=== PATIENT | female | born 1980 | race African-American/Black ===

== ENCOUNTER 2017-07-14 04:09 | Emergency (ER) | payer OTHER ==
[2017-07-14 04:20] VITALS: BP 127/68
== END 2017-07-14 05:40 | disposition left against medical advice (07) ==
LOC: ER 04:09
DX: Z53.21 Procedure and treatment not carried out due to patient leaving prior to being seen by health care provider (principal)

== ENCOUNTER 2018-06-22 19:21 | Emergency (ER) | payer OTHER ==
[2018-06-22 19:47] LABS: APPEARANCE,URINE CLEAR; BILIRUBIN,URINE NEGATIVE (NEGATIVE); COLOR,URINE YELLOW; GLUCOSE, URINE NEGATIVE (NEGATIVE); KETONES,URINE NEGATIVE (NEGATIVE); LEUKOCYTE ESTERASE,URINE SMALL (NEGATIVE); NITRITE,URINE NEGATIVE (NEGATIVE); PROTEIN,URINE NEGATIVE (NEGATIVE); URINE SPECIFIC GRAVITY 1.015
[2018-06-22 20:21] VITALS: BP 138/71
--- NOTE | 2018-06-22 20:23 | ER Document Report ---
HPI - HPI Time Seen by Provider: 06/22/18 20:22 Pain Level: 3 Notes: Patient is an otherwise healthy 37-year-old female who presents to the emergency department with chief complaint of dysuria and urinary frequency that started last night. Patient reports burning when she pees. Denies any flank pain or fever. - REPRODUCTIVE Reproductive: DENIES: : Past Medical History - General Information source: Patient - Social History Smoking Status: Current Every Day Smoker Frequency of alcohol use: None Drug Abuse: None Family History: Reviewed & Not Pertinent Neurological Medical History: Reports: Hx Migraine Renal/ Medical History: Denies: Hx Peritoneal Dialysis Past Surgical History: Reports: Hx Section - Immunizations Immunizations up to date: Yes Hx Diphtheria, Pertussis, Tetanus Vaccination: Yes Hx Pneumococcal Vaccination: 06/01/00 Vertical Provider Document - CONSTITUTIONAL Notes: PHYSICAL EXAMINATION: GENERAL: Well-appearing, well-nourished and in no acute distress. HEAD: Atraumatic, normocephalic. EYES: Pupils equal round extraocular movements intact, conjunctiva are normal. ENT: Nares patent NECK: Normal range of motion LUNGS: No respiratory distress Musculoskeletal: Normal range of motion NEUROLOGICAL: Normal speech, normal gait. PSYCH: Normal mood, normal affect. SKIN: Warm, Dry, normal turgor, no rashes or lesions noted. - INFECTION CONTROL TRAVEL OUTSIDE OF THE [place] IN LAST 30 DAYS: No Course - Re-evaluation Re-evalutation: 06/22/18 20:35 Urinalysis consistent with urinary tract infection. Patient will be placed on Bactrim. Culture pending. - Vital Signs Vital signs: Temp Pulse Resp BP Pulse Ox 98.2 F 86 16 138/71 H 100 06/22/18 19:25 06/22/18 19:25 06/22/18 19:25 06/22/18 19:25 06/22/18 19:25 - Laboratory Laboratory results interpreted by me: 06/22/18 19:30 Urine Blood MODERATE H Urine Urobilinogen 2.0 H Ur Leukocyte Esterase SMALL H Discharge - Discharge Clinical Impression: Urinary tract infection Qualifiers: Urinary tract infection type: site unspecified Hematuria presence: with hematu gil Qualified Code(s): N39.0 - Urinary tract infection, site not specified Condition: Stable Disposition: HOME, SELF-CARE Additional Instructions: Your urine shows findings consistent with a urinary tract infection. Please take all the antibiotics as directed even if your symptoms have improved. Please follow-up with your primary care physician as needed. Return to emergency room if you develop fever >101F, persistent vomiting, become lethargic, have severe pain in your sides, or any other symptoms that are concerning to you. Prescriptions: Fluconazole [Diflucan] 150 mg PO ONCE PRN #1 tablet PRN Reason: Phenazopyridine HCl [Pyridium 100 Mg Tablet] 100 mg PO TID #6 tablet Sulfamethoxazole/Trimethoprim [Bactrim Ds Tablet] 1 tab PO BID #14 tablet Forms: Return to Work
[2018-06-22] MEDS ORDERED: PHENAZOPYRIDINE HCL 100 MG TABLET PO ONE (20:31)
[2018-06-22] MEDS ORDERED: SULFAMETHOXAZOLE/TRIMETHOPRIM 800-160 MG TABLET PO ONE (20:32)
== END 2018-06-22 20:43 | disposition home or self-care (01) ==
LOC: ER 19:21
DX: N39.0 Urinary tract infection, site not specified (principal); R31.9 Hematuria, unspecified; F17.200 Nicotine dependence, unspecified, uncomplicated
CPT/HCPCS: 99283; 87086; 87088; 81001; 87186; J3490

== ENCOUNTER 2019-04-26 01:34 | Inpatient (IN) | payer OTHER ==
[2019-04-26 02:16] LABS: HEMATOCRIT 34.1 % (36.0-47.0); HEMOGLOBIN 11.3 g/dL (12.0-15.5); MEAN CORPUSCULAR HEMOGLOBIN 24.6 pg (27.0-33.4); MEAN CORPUSCULAR VOLUME 75 fl (80-97); PLATELET COUNT 268 10^3/uL (150-450); RED BLOOD COUNT 4.57 10^6/uL (3.72-5.28); RED CELL DISTRIBUTION WIDTH 16.5 % (11.5-14.0); WHITE BLOOD COUNT 18.7 10^3/uL (4.0-10.5)
[2019-04-26 02:31] LABS: ALBUMIN 4.8 g/dL (3.5-5.0); ALKALINE PHOSPHATASE 65 U/L (38-126); ANION GAP 13 (5-19); ASPARTATE AMINO TRANSFERASE 25 U/L (14-36); BILIRUBIN,DIRECT 0.1 mg/dL (0.0-0.4); BLOOD UREA NITROGEN 10 mg/dL (7-20); CALCIUM 10.2 mg/dL (8.4-10.2); CARBON DIOXIDE 28 mmol/L (22-30); CHLORIDE 101 mmol/L (98-107); GLUCOSE 126 mg/dL (75-110); POTASSIUM 3.4 mmol/L (3.6-5.0); TOTAL PROTEIN 8.3 g/dL (6.3-8.2)
[2019-04-26 02:32] LABS: ABSOLUTE LYMPHOCYTES# (MANUAL) 0.7 10^3/uL (0.5-4.7); ABSOLUTE MONOCYTES # (MANUAL) 0.9 10^3/uL (0.1-1.4); ANISOCYTOSIS 1+; BAND NEUTROPHILS % (MANUAL) 8 % (3-5); BASOPHILS % (MANUAL) 0 % (0-2); EOSINOPHILS % (MANUAL) 0 % (0-6); LYMPHOCYTES % (MANUAL) 3 % (13-45); MONOCYTES % (MANUAL) 5 % (3-13); PLATELET COMMENT ADEQUATE; SEGMENTED NEUTROPHILS % (MAN) 83 % (42-78); TARGET CELLS SLIGHT; TOTAL CELLS COUNTED 100
[2019-04-26] MEDS ORDERED: CEFTRIAXONE 1 GM/D5W RTU 1 GM/50 ML RTUPB IV ONE (03:30)
[2019-04-26] MEDS ORDERED: FENTANYL CITRATE INJ/PF 100 MCG/2 ML AMPUL IV ONE (03:31)
[2019-04-26] MEDS ORDERED: ONDANSETRON HCL INJ/PF 4 MG/2 ML SDV IV ONE ×2 (03:31→07:47)
[2019-04-26] MEDS ORDERED: NORMAL SALINE 1000 ML 1,000 ML IV ONE (03:31)
[2019-04-26] MEDS ORDERED: MORPHINE SULFATE 10 MG/ML INJ IV ONE ×3 (03:34→07:47)
[2019-04-26 05:24] LABS: T.VAGINALIS (WET MOUNT) NO TRICHOMONAS SEEN; YEAST (WET MOUNT) YEAST SEEN
[2019-04-26 05:25] LABS: BACTERIA (WET MOUNT) 4+ BACTERIA SEEN; RBCS (WET MOUNT) 1+ RBCS SEEN; WBCS (WET MOUNT) FEW WBCS SEEN
[2019-04-26 05:34] LABS: APPEARANCE,URINE SLIGHTLY-CLOUDY; BILIRUBIN,URINE NEGATIVE (NEGATIVE); COLOR,URINE YELLOW; GLUCOSE, URINE NEGATIVE (NEGATIVE); KETONES,URINE TRACE mg/dL (NEGATIVE); LEUKOCYTE ESTERASE,URINE MODERATE (NEGATIVE); NITRITE,URINE NEGATIVE (NEGATIVE); PROTEIN,URINE 30 mg/dL (NEGATIVE); URINE SPECIFIC GRAVITY 1.014
[2019-04-26] MEDS ORDERED: ACETAMINOPHEN 325 MG TABLET PO ONE (06:12)
[2019-04-26] MEDS ORDERED: FLUCONAZOLE 100 MG TABLET PO ONE (06:12)
[2019-04-26] MEDS ORDERED: NORMAL SALINE 500 ML IV ONE (06:15)
--- NOTE | 2019-04-26 06:18 | ER Document Report ---
ED GI/ - General Chief Complaint: Abdominal Pain Stated Complaint: ABDOMINAL PAIN Time Seen by Provider: 04/26/19 03:09 Notes: Patient is a 38 year old female that comes to the Emergency Department for chief complaint of 2-3 days of worsening mid to lower abdominal pain, and now she states she has developed generalized body aches and chills. She comes by EMS, she was found to have a fever of 100.8 initially. Patient denies vomiting but reports some nausea. She states that she believes she has gonorrhea, she states that she "loaned" her sexual toy/dildo and told the friend to use a cover, she suspects they did not, and she believes she got an STD from it. She reports past medical history of , denies medical history otherwise. TRAVEL OUTSIDE OF THE [place] IN LAST 30 DAYS: No - Related Data Allergies/Adverse Reactions: tramadol [Tramadol] Allergy (Intermediate, Verified 04/26/19 01:43) tramadol HCl [From Ultram] Allergy (Intermediate, Verified 04/26/19 01:43) hurts stomach, nausea, vomiting Penicillins Allergy (Unknown, Verified 04/26/19 01:43) heart speeds up hydrocodone bitartrate [From Vicodin] Allergy (Verified 04/26/19 01:43) heart speeds up, feels faint ketorolac tromethamine [From Toradol] Allergy (Verified 04/26/19 01:43) hydrocodone [Hydrocodone] Adverse Reaction (Intermediate, Verified 04/26/19 01:43) heart speed up, feel faint ibuprofen [From Motrin] Adverse Reaction (Intermediate, Verified 04/26/19 01:43) hurts stomach, nausea, vomiting Past Medical History - General Information source: Patient - Social History Smoking Status: Current Every Day Smoker Frequency of alcohol use: Occasional Drug Abuse: None Lives with: Alone Family History: Reviewed & Not Pertinent Patient has suicidal ideation: No Patient has homicidal ideation: No Neurological Medical History: Reports: Hx Migraine Renal/ Medical History: Denies: Hx Peritoneal Dialysis Past Surgical History: Reports: Hx Section - Immunizations Immunizations up to date: Yes Hx Diphtheria, Pertussis, Tetanus Vaccination: Yes Hx Pneumococcal Vaccination: 06/01/00 Review of Systems - Review of Systems Constitutional: See HPI EENT: No symptoms reported Cardiovascular: No symptoms reported Respiratory: No symptoms reported Gastrointestinal: See HPI Genitourinary: No symptoms reported Female Genitourinary: See HPI Musculoskeletal: No symptoms reported Skin: No symptoms reported Hematologic/Lymphatic: No symptoms reported Neurological/Psychological: No symptoms reported Physical Exam - Vital signs Vitals: Temp Pulse Resp BP Pulse Ox 98.6 F 85 18 116/46 L 97 04/26/19 01:49 04/26/19 01:49 04/26/19 01:49 04/26/19 01:49 04/26/19 01:49 - Notes Notes: GENERAL: Thin and somewhat ill-appearing, however she is alert and is not in severe distress HEAD: Normocephalic, atraumatic. EYES: Pupils equal, round, and reactive to light. Extraocular movements intact. ENT: Oral mucosa moist, tongue midline. Oropharynx unremarkable. Airway patent. NECK: Full range of motion. Supple. Trachea midline. LUNGS: Clear to auscultation bilaterally, no wheezes, rales, or rhonchi. No respiratory distress. HEART: Regular rate and rhythm. No murmur ABDOMEN: Patient is tender regardless of where he pressed on the abdomen but this seems more noticeable generally in the lower abdomen. There is no specific area of guarding, no rigidity, no rebound tenderness. GENITOURINARY: There is a moderate amount of vaginal bleeding, there is also a moderate amount of vaginal discharge, there is tenderness but not severe noted tenderness, exam is somewhat limited by patient cooperation. Mago THAYER present at bedside. EXTREMITIES: Moves all 4 extremities spontaneously. No edema, normal radial and dorsalis pedis pulses bilaterally. No cyanosis. BACK: No noted CVA tenderness. No cervical, thoracic, lumbar midline tenderness. No saddle anesthesia, normal distal neurovascular exam. NEUROLOGICAL: Alert and oriented x3. Normal speech. Cranial nerves II through XII grossly intact. PSYCH: Irritable and intermittently demanding and uncooperative SKIN: Warm, dry, normal turgor. No rashes or lesions noted. Course - Re-evaluation Re-evalutation: Patient with very tender abdomen, moves with obvious discomfort, no overt CVA tenderness, ill-appearing. Vital signs unremarkable except initial fever at 100.8. CBC shows leukocytosis at 19.8 with bandemia of 8%. Lactic acid is not elevated. Chemistry nonspecific. Urinalysis does indicate infection. Pelvic exam showed some bleeding and some discharge with tenderness but no definite CM T, patient did have difficulty tolerating the procedure and I could not get a definite result with this. Wet mount shows positive yeast, positive white blood cells and bacteria, giving Diflucan. Temperature is starting to come back at 100.3. Patient still ill-appearing and tender on reexamination, gonorrhea and chlamydia pending, starting Rocephin, CT will be performed to rule out obstructing stone or abscess. CT negative for acute pathology. Gonorrhea is positive. Patient has been given Rocephin and doxycycline so far, blood cultures pending. Patient is still very tender despite pain medication, moves with a lot of discomfort. Because of her fever, leukocytosis with bandemia, I suspect patient has severe PID at this time. Will discuss with MUSIC THERAPY SPECIALIST. 04/26/19 08:[address] Hunter, patient will be excepted by Dr. Goldman, they recommended patient be brought up to and she will be examined there. I did discuss with patient, patient states agreement with plan of admission. - Vital Signs Vital signs: Temp Pulse Resp BP Pulse Ox 100.3 F 81 16 124/68 96 04/26/19 05:53 04/26/19 05:53 04/26/19 05:53 04/26/19 05:53 04/26/19 05:53 - Laboratory Result Diagrams: 04/26/19 02:00 04/26/19 02:00 Laboratory results interpreted by me: 04/26/19 04/26/19 04/26/19 02:00 02:00 04:45 WBC 18.7 H Hgb 11.3 L Hct 34.1 L MCV 75 L MCH 24.6 L RDW 16.5 H Seg Neuts % (Manual) 83 H Band Neutrophils % 8 H Lymphocytes % (Manual) 3 L Abs Neuts (Manual) 17.0 H Potassium 3.4 L Glucose 126 H Total Protein 8.3 H Lipase 19.5 L Urine Protein Urine Ketones Urine Blood Urine Urobilinogen Ur Leukocyte Esterase N.gonorrhoeae DNA (PCR) DETECTED H 04/26/19 04:58 WBC Hgb Hct MCV MCH RDW Seg Neuts % (Manual) Band Neutrophils % Lymphocytes % (Manual) Abs Neuts (Manual) Potassium Glucose Total Protein Lipase Urine Protein 30 H Urine Ketones TRACE H Urine Blood LARGE H Urine Urobilinogen 4.0 H Ur Leukocyte Esterase MODERATE H N.gonorrhoeae DNA (PCR) Discharge - Discharge Clinical Impression: Bandemia, PID (acute pelvic inflammatory disease), Gonorrhea, Lower abdominal pain Fever Qualifiers: Fever type: unspecified Qualified Code(s): R50.9 - Fever, unspecified Condition: Stable Disposition: ADMITTED INPATIENT Admitting Provider: [facility] Unit Admitted: Post
[2019-04-26 06:54] LABS: CHLAM PCR NOT DETECTED (NOT DETECT)
[2019-04-26] MEDS ORDERED: DOXYCYCLINE HYCLATE INJ 100 MG VIAL IV ONE (07:09)
--- NOTE | 2019-04-26 07:22 | RADIOLOGY REPORT (SQ) ---
EXAM: CT abdomen and pelvis with IV contrast CLINICAL DATA: 38-year-old female with questionable tubo-ovarian abscess, fever, STD exposure, bandemia, lower abdominal pain TECHNICAL DATA: Axial CT imaging of the abdomen and pelvis was performed following the administration of intravenous contrast.. Sagittal and coronal reconstructed images were then performed. The CT study is performed according to ALARA (as low as reasonably achievable) or ALARA/IMAGE GENTLY, with automatic adjustment of mA and/or kV according to patient size. Performed on: 04/26/2019 at 6:18 AM. Comparison: CT abdomen and pelvis performed on 09/27/2014 FINDINGS: Lung bases: The lung bases are clear. Liver: The liver is mildly enlarged and measures approximately 19 cm in craniocaudal dimension. There is a 2.7 x 2.1 x 2.2 cm focal area of decreased attenuation in the right hepatic lobe which mildly enhances on the portal phase images. This is nonspecific and could represent a hemangioma. Liver attenuation is otherwise grossly within normal limits. Spleen:The spleen is normal is size, configuration and attenuation. Gallbladder and bile duct: The gallbladder is well distended and is grossly unremarkable. The common bile duct is mildly dilated and measures approximately 8 to 9 mm in diameter. There is tapering of the distal common bile duct. Pancreas: The pancreas is grossly normal in size and configuration. Adrenal Glands:The adrenal glands are normal in size and configuration. Kidneys:The kidneys are normal in size and configuration. There is no evidence of hydronephrosis. There is no evidence of nephrolithiasis. No definite solid or cystic renal mass lesions are identified. Stomach:The stomach is grossly normal. There is no definite hiatal hernia. Bowel:The bowel gas pattern is non specific and non obstructive. Appendix: The appendix is normal. Free air:There is no evidence of free air. Free fluid: There is no evidence of free fluid. Vasculature: The aorta is normal in caliber and contour. The inferior vena cava is grossly unremarkable. Lymphadenopathy: No pathologic lymphadenopathy is identified. Bladder: The bladder is well distended and smooth in contour. Reproductive: The uterus is grossly within normal limits. No adnexal mass lesions are identified. Bones: No acute osseous abnormalities are identified. Soft tissues: No focal soft tissue abnormalities are identified. IMPRESSION: 1. No evidence of acute intra-abdominal or intrapelvic pathology. 2. The gallbladder is moderately distended and there is dilatation of the common bile duct which measures approximately 8 to 9 mm in diameter with tapering of the distal common duct. 3. Mild hepatomegaly. 4. Approximately 2.7 x 2.1 x 2.2 cm focal area of decreased attenuation in the right hepatic lobe which mildly enhances on the portal phase images possibly representing a cavernous hemangioma.
[2019-04-26] MEDS ORDERED: METRONIDAZOLE 500 MG/NS RTU 500 MG in CONTAINER,EMPTY 1 EACH IV SCH (10:41)
[2019-04-26] MEDS ORDERED: AZITHROMYCIN INJ 500 MG VIAL IV ONE (10:41)
[2019-04-26] MEDS ORDERED: METRONIDAZOLE 500 MG/NS RTU 500 MG/100 ML RTUPB IV ONE (10:49)
--- NOTE | 2019-04-26 10:59 | PDOC H&P ---
History of Present Illness Admission Date/PCP: 04/26/19 08:52 Patient complains of: Worsening abdominal pain over 2 to 3 days History of Present Illness: ALEX FIELD is a 38 year old presented to [facility] emergency department complaining of worsening abdominal pain. Patient stated that the abdominal pain started 2 to 3 days ago. She does have some nausea but no vomiting. Patient stated that she thought that she had Gonorrhea secondary to landing her sex toy to her friend. When the EMS arrived, her temperature was 100.8. She was indeed positive for Gonorrhea. Past Medical History 1 Baby 1 Male Delivery: Spontaneous Vaginal Delivery, : Low Cervical, Transverse Neurological Medical History: Reports: Migraine Past Surgical History Past Surgical History: Reports: Section Social History Lives with: Alone Smoking Status: Current Every Day Smoker Electronic Cigarette use?: No Frequency of Alcohol Use: Rare Hx Recreational Drug Use: No Family History Family History: Reviewed & Not Pertinent Parental Family History Reviewed: Yes Children Family History Reviewed: NA Sibling(s) Family History Reviewed.: NA Medication/Allergy Home Medications: Fremanezumab-Vfrm [Ajovy] 225 mg SQ Q30D 04/26/19 Allergies/Adverse Reactions: tramadol [Tramadol] Allergy (Intermediate, Verified 04/26/19 01:43) tramadol HCl [From Ultram] Allergy (Intermediate, Verified 04/26/19 01:43) hurts stomach, nausea, vomiting Penicillins Allergy (Unknown, Verified 04/26/19 01:43) heart speeds up hydrocodone bitartrate [From Vicodin] Allergy (Verified 04/26/19 01:43) heart speeds up, feels faint ketorolac tromethamine [From Toradol] Allergy (Verified 04/26/19 01:43) hydrocodone [Hydrocodone] Adverse Reaction (Intermediate, Verified 04/26/19 01:43) heart speed up, feel faint ibuprofen [From Motrin] Adverse Reaction (Intermediate, Verified 04/26/19 01:43) hurts stomach, nausea, vomiting Review of Systems Constitutional: PRESENT: as per HPI Cardiovascular: ABSENT: as per HPI, chest pain, dyspnea on exertion, edema, orthropnea, palpitations, other Respiratory: ABSENT: as per HPI, cough, dyspnea, hemoptysis, sputum, other Gastrointestinal: PRESENT: abdominal pain Physical Exam - Physical Exam Vital Signs: Temp Pulse Resp BP Pulse Ox 99.2 F 97 18 121/68 97 04/26/19 09:56 04/26/19 09:56 04/26/19 09:56 04/26/19 09:56 04/26/19 09:56 Intake & Output 04/25/19 04/26/19 04/27/19 06:59 06:59 06:59 Intake Total 1050 500 Balance 1050 500 Weight 54.431 kg General appearance: PRESENT: no acute distress Respiratory exam: PRESENT: clear to auscultation gricelda Cardiovascular exam: PRESENT: RRR GI/Abdominal exam: PRESENT: normal bowel sounds, soft - Mild tenderness Extremities exam: ABSENT: calf tenderness, clubbing, full ROM, joint swelling, pedal edema, tenderness, +1 edema, +2 edema, other Result Laboratory Results: 04/26/19 02:00 04/26/19 02:00 04/26/19 04/26/19 04/26/19 02:00 02:00 02:00 WBC 18.7 H RBC 4.57 Hgb 11.3 L Hct 34.1 L MCV 75 L MCH 24.6 L MCHC 33.0 RDW 16.5 H Plt Count 268 Seg Neutrophils % Not Reportable Sodium 142.3 Potassium 3.4 L Chloride 101 Carbon Dioxide 28 Anion Gap 13 BUN 10 Creatinine 0.69 Est GFR ( Amer) > 60 Glucose 126 H Calcium 10.2 Total Bilirubin 1.0 AST 25 Alkaline Phosphatase 65 Total Protein 8.3 H Albumin 4.8 Lipase 19.5 L Serum HCG, Qual NEGATIVE Urine Color Urine Appearance Urine pH Ur Specific [place] Urine Protein Urine Glucose (UA) Urine Ketones Urine Blood Urine Nitrite Ur Leukocyte Esterase Urine WBC (Auto) Urine RBC (Auto) 04/26/19 04:58 WBC RBC Hgb Hct MCV MCH MCHC RDW Plt Count Seg Neutrophils % Sodium Potassium Chloride Carbon Dioxide Anion Gap BUN Creatinine Est GFR ( Amer) Glucose Calcium Total Bilirubin AST Alkaline Phosphatase Total Protein Albumin Lipase Serum HCG, Qual Urine Color YELLOW Urine Appearance SLIGHTLY-CLOUDY Urine pH 6.0 Ur Specific [place] 1.014 Urine Protein 30 H Urine Glucose (UA) NEGATIVE Urine Ketones TRACE H Urine Blood LARGE H Urine Nitrite NEGATIVE Ur Leukocyte Esterase MODERATE H Urine WBC (Auto) 130 Urine RBC (Auto) >182 Impressions: Abdomen/Pelvis CT 04/26/19 05:43 IMPRESSION: 1. No evidence of acute intra-abdominal or intrapelvic pathology. 2. The gallbladder is moderately distended and there is dilatation of the common bile duct which measures approximately 8 to 9 mm in diameter with tapering of the distal common duct. 3. Mild hepatomegaly. 4. Approximately 2.7 x 2.1 x 2.2 cm focal area of decreased attenuation in the right hepatic lobe which mildly enhances on the portal phase images possibly representing a cavernous hemangioma. Assessment & Plan - Diagnosis (1) Bandemia Is this a current diagnosis for this admission?: Yes (2) Fever Qualifiers: Fever type: unspecified Qualified Code(s): R50.9 - Fever, unspecified Is this a current diagnosis for this admission?: Yes (3) Gonorrhea Is this a current diagnosis for this admission?: Yes (4) Lower abdominal pain Is this a current diagnosis for this admission?: Yes (5) PID (acute pelvic inflammatory disease) Is this a current diagnosis for this admission?: Yes (6) Nausea Is this a current diagnosis for this admission?: Yes - Time Time Spent: 30 to 50 Minutes Critical Time spent with patient: 25-34 minutes Smoking Cessation Education: 3 to 10 minutes Medications reviewed and adjusted accordingly: Yes Anticipated discharge: Home Within: Other - pt will leave Against Medical Advice - Inpatient Certification Based on my medical assessment, after consideration of the patient's comorbidities, presenting symptoms, or acuity I expect that the services needed warrant INPATIENT care.: Yes I certify that my determination is in accordance with my understanding of Medicare's requirements for reasonable and necessary INPATIENT services [42 CFR 412.3e].: Yes Medical Necessity: Need for IV Antibiotics - Plan Summary Plan Summary: 1. Patient agreeable to receiving one IV dose of antibiotics 2. Patient is adamant about leaving to take her disabled son to a doctor's appointment 3. Prescriptions for Flagyl 500 mg twice daily x14 days and metronidazole 500 mg twice daily for 14 days 4. Follow-up in the office in 2 weeks
--- NOTE | 2019-04-26 11:13 | PDOC DISCHARGE SUMMARY ---
Impression - Admit/DC Date/PCP Admission Date/Primary Care Provider: 04/26/19 08:52 Discharge Date: 04/26/19 - Discharge Diagnosis (1) Bandemia Is this a current diagnosis for this admission?: Yes (2) Fever Is this a current diagnosis for this admission?: Yes (3) Gonorrhea Is this a current diagnosis for this admission?: Yes (4) Lower abdominal pain Is this a current diagnosis for this admission?: Yes (5) PID (acute pelvic inflammatory disease) Is this a current diagnosis for this admission?: Yes (6) Nausea Is this a current diagnosis for this admission?: Yes - Additional Information Resuscitation Status: Full Code Discharge Diet: As Tolerated Discharge Activity: Activity As Tolerated, Pelvic Rest Home Medications: Fremanezumab-Vfrm [Ajovy] 225 mg SQ Q30D 04/26/19 History of Present Illiness History of Present Illness: ALEX FIELD is a 38 year old presented to [facility] emergency department complaining of worsening abdominal pain. Patient stated that the abdominal pain started 2 to 3 days ago. She does have some nausea but no vomiting. Patient stated that she thought that she had Gonorrhea secondary to landing her sex toy to her friend. When the EMS arrived, her temperature was 100.8. She was indeed positive for Gonorrhea. Hospital Course Hospital Course: The patient was admitted to the floor after her emergency department admission. Patient immediately stated that she needed to leave. She stated that she has a handicapped son and needs to pick him up and take him to a doctor's appointment. Today, we discussed her pelvic inflammatory disease. I informed her that she now has gonorrhea which has traveled up into the genitourinary system, which is indicative of her fever and abdominal pain. I also informed her that if she does not receive proper antibiotic treatment, she can become infertile. I informed her that if she leaves, it will be AGAINST MEDICAL ADVICE. Patient is willing to sign an AMA form. She is agreeable to receiving at least 1 dose of azithromycin and metronidazole. She states that she will take her antibiotics orally and requested an additional prescription for Diflucan. Physical Exam - Physical Exam Vital Signs: Temp Pulse Resp BP Pulse Ox 99.2 F 97 18 121/68 97 04/26/19 09:56 04/26/19 09:56 04/26/19 09:56 04/26/19 09:56 04/26/19 09:56 Intake & Output 04/25/19 04/26/19 04/27/19 06:59 06:59 06:59 Intake Total 1050 500 Balance 1050 500 Weight 54.431 kg General appearance: PRESENT: no acute distress Respiratory exam: PRESENT: clear to auscultation gricelda Cardiovascular exam: PRESENT: RRR GI/Abdominal exam: PRESENT: normal bowel sounds, soft - Mild tenderness Extremities exam: ABSENT: calf tenderness, clubbing, full ROM, joint swelling, pedal edema, tenderness, +1 edema, +2 edema, other Results Laboratory Results: WBC 18.7 10^3/uL (4.0-10.5) H 04/26/19 02:00 RBC 4.57 10^6/uL (3.72-5.28) 04/26/19 02:00 Hgb 11.3 g/dL (12.0-15.5) L 04/26/19 02:00 Hct 34.1 % (36.0-47.0) L 04/26/19 02:00 MCV 75 fl (80-97) L 04/26/19 02:00 MCH 24.6 pg (27.0-33.4) L 04/26/19 02:00 MCHC 33.0 g/dL (32.0-36.0) 04/26/19 02:00 RDW 16.5 % (11.5-14.0) H 04/26/19 02:00 Plt Count 268 10^3/uL (150-450) 04/26/19 02:00 Lymph % (Auto) Not Reportable 04/26/19 02:00 [place] % (Auto) Not Reportable 04/26/19 02:00 Eos % (Auto) Not Reportable 04/26/19 02:00 Baso % (Auto) Not Reportable 04/26/19 02:00 Absolute Neuts (auto) Not Reportable 04/26/19 02:00 Absolute Lymphs (auto) Not Reportable 04/26/19 02:00 Absolute Monos (auto) Not Reportable 04/26/19 02:00 Absolute Eos (auto) Not Reportable 04/26/19 02:00 Absolute Basos (auto) Not Reportable 04/26/19 02:00 Total Counted 100 04/26/19 02:00 Seg Neutrophils % Not Reportable 04/26/19 02:00 Seg Neuts % (Manual) 83 % (42-78) H 04/26/19 02:00 Band Neutrophils % 8 % (3-5) H 04/26/19 02:00 Lymphocytes % (Manual) 3 % (13-45) L 04/26/19 02:00 Atypical Lymphs % 1 % (0) 04/26/19 02:00 Monocytes % (Manual) 5 % (3-13) 04/26/19 02:00 Eosinophils % (Manual) 0 % (0-6) 04/26/19 02:00 Basophils % (Manual) 0 % (0-2) 04/26/19 02:00 Abs Neuts (Manual) 17.0 10^3/uL (1.7-8.2) H 04/26/19 02:00 Abs Lymphs (Manual) 0.7 10^3/uL (0.5-4.7) 04/26/19 02:00 Abs Monocytes (Manual) 0.9 10^3/uL (0.1-1.4) 04/26/19 02:00 Absolute Eos (Manual) 0.0 10^3/uL (0.0-0.6) 04/26/19 02:00 Abs Basophils (Manual) 0.0 10^3/uL (0.0-0.2) 04/26/19 02:00 Platelet Comment ADEQUATE 04/26/19 02:00 Anisocytosis 1+ 04/26/19 02:00 Microcytosis 1+ 04/26/19 02:00 Target Cells SLIGHT 04/26/19 02:00 Sodium 142.3 mmol/L (137-145) 04/26/19 02:00 Potassium 3.4 mmol/L (3.6-5.0) L 04/26/19 02:00 Chloride 101 mmol/L (98-107) 04/26/19 02:00 Carbon Dioxide 28 mmol/L (22-30) 04/26/19 02:00 Anion Gap 13 (5-19) 04/26/19 02:00 BUN 10 mg/dL (7-20) 04/26/19 02:00 Creatinine 0.69 mg/dL (0.52-1.25) 04/26/19 02:00 Est GFR ( Amer) > 60 (>60) 04/26/19 02:00 Est GFR (MDRD) Non-Af > 60 (>60) 04/26/19 02:00 Glucose 126 mg/dL (75-110) H 04/26/19 02:00 Lactic Acid (Sepsis) 1.6 mmol/L (0.7-2.1) 04/26/19 04:05 Calcium 10.2 mg/dL (8.4-10.2) 04/26/19 02:00 Total Bilirubin 1.0 mg/dL (0.2-1.3) 04/26/19 02:00 Direct Bilirubin 0.1 mg/dL (0.0-0.4) 04/26/19 02:00 Neonat Total Bilirubin Not Reportable 04/26/19 02:00 Neonat Direct Bilirubin Not Reportable 04/26/19 02:00 Neonat Indirect Bili Not Reportable 04/26/19 02:00 AST 25 U/L (14-36) 04/26/19 02:00 ALT 14 U/L (<35) 04/26/19 02:00 Alkaline Phosphatase 65 U/L (38-126) 04/26/19 02:00 Total Protein 8.3 g/dL (6.3-8.2) H 04/26/19 02:00 Albumin 4.8 g/dL (3.5-5.0) 04/26/19 02:00 Lipase 19.5 U/L (23-300) L 04/26/19 02:00 Serum HCG, Qual NEGATIVE (NEGATIVE) 04/26/19 02:00 Urine Color YELLOW 04/26/19 04:58 Urine Appearance SLIGHTLY-CLOUDY 04/26/19 04:58 Urine pH 6.0 (5.0-9.0) 04/26/19 04:58 Ur Specific [place] 1.014 04/26/19 04:58 Urine Protein 30 mg/dL (NEGATIVE) H 04/26/19 04:58 Urine Glucose (UA) NEGATIVE mg/dL (NEGATIVE) 04/26/19 04:58 Urine Ketones TRACE mg/dL (NEGATIVE) H 04/26/19 04:58 Urine Blood LARGE (NEGATIVE) H 04/26/19 04:58 Urine Nitrite NEGATIVE (NEGATIVE) 04/26/19 04:58 Urine Bilirubin NEGATIVE (NEGATIVE) 04/26/19 04:58 Urine Urobilinogen 4.0 mg/dL (<2.0) H 04/26/19 04:58 Ur Leukocyte Esterase MODERATE (NEGATIVE) H 04/26/19 04:58 Urine WBC (Auto) 130 /HPF 04/26/19 04:58 Urine RBC (Auto) >182 /HPF 04/26/19 04:58 Squamous Epi Cells Auto 1 /HPF 04/26/19 04:58 Urine Mucus (Auto) OCC /LPF 04/26/19 04:58 Urine Ascorbic Acid NEGATIVE (NEGATIVE) 04/26/19 04:58 Bacteria (Wet Prep) 4+ BACTERIA SEEN 04/26/19 04:45 Trichomonas (Wet Prep) NO TRICHOMONAS SEEN 04/26/19 04:45 Vaginal WBC FEW WBCS SEEN 04/26/19 04:45 Vaginal RBC 1+ RBCS SEEN 04/26/19 04:45 Vaginal Yeast YEAST SEEN 04/26/19 04:45 Chlamydia DNA (PCR) NOT DETECTED (NOT DETECT) 04/26/19 04:45 N.gonorrhoeae DNA (PCR) DETECTED (NOT DETECT) H 04/26/19 04:45 Impressions: Abdomen/Pelvis CT 04/26/19 05:43 IMPRESSION: 1. No evidence of acute intra-abdominal or intrapelvic pathology. 2. The gallbladder is moderately distended and there is dilatation of the common bile duct which measures approximately 8 to 9 mm in diameter with tapering of the distal common duct. 3. Mild hepatomegaly. 4. Approximately 2.7 x 2.1 x 2.2 cm focal area of decreased attenuation in the right hepatic lobe which mildly enhances on the portal phase images possibly representing a cavernous hemangioma. Plan Health Concerns: Patient will leave AGAINST MEDICAL ADVICE. She does have a white count 18,000. She is currently afebrile. Her CT is negative for a tubo-ovarian abscess. However, her condition can worsen. We also discussed the fact that she can become infertile if this condition goes untreated. Plan of Treatment: Discharge home with oral antibiotics Time Spent: Greater than 30 Minutes Stroke Is this a Stroke Patient?: No Acute Heart Failure - Is this a Heart Failure Patient?: No
[2019-04-26] MEDS ORDERED: AZITHROMYCIN 500 MG in DEXTROSE 5%-WATER 250 ML IV ONE (12:00)
[2019-04-26] MEDS ORDERED: METRONIDAZOLE 500 MG/NS RTU 500 MG/100 ML RTUPB IV SCH (12:00)
[2019-04-26 12:27] VITALS: BP 114/63
[2019-04-26] MEDS ORDERED: AZITHROMYCIN 250 MG TABLET PO ONE (14:00)
== END 2019-04-26 14:39 | disposition left against medical advice (07) | DRG 759 ==
LOC: ER 01:34 → INTOOBSV 08:52 → EH 08:52 → 2N 09:45 → OBSVTOIN 10:40 → INTOOBSV 10:40
PROVIDERS: ADMIT Obstetrics & Gynecology; ATTEND Obstetrics & Gynecology
DX: A54.00 Gonococcal infection of lower genitourinary tract, unspecified (principal); D72.825 Bandemia; N73.9 Female pelvic inflammatory disease, unspecified; Z53.29 Procedure and treatment not carried out because of patient's decision for other reasons; F17.200 Nicotine dependence, unspecified, uncomplicated; G43.909 Migraine, unspecified, not intractable, without status migrainosus; Z88.6 Allergy status to analgesic agent; Z88.0 Allergy status to penicillin
CPT/HCPCS: 36415; 74177; 80053; 81001; 83605; 83690; 84703; 85025; 87040; 87086; 87088; 87210; 87491; 87591; 96361; 96365; 96366; 96375; 96376; 99285; J0456; J0696; J2270; J2405; J3490; J7030; J7040; J7060

== ENCOUNTER 2019-04-28 04:03 | Observation (INO) | payer OTHER ==
[2019-04-28 06:53] LABS: APPEARANCE,URINE SLIGHTLY-CLOUDY; BILIRUBIN,URINE NEGATIVE (NEGATIVE); COLOR,URINE YELLOW; GLUCOSE, URINE NEGATIVE (NEGATIVE); KETONES,URINE TRACE mg/dL (NEGATIVE); LEUKOCYTE ESTERASE,URINE TRACE (NEGATIVE); NITRITE,URINE NEGATIVE (NEGATIVE); PROTEIN,URINE 100 mg/dL (NEGATIVE); URINE SPECIFIC GRAVITY 1.023; UROBILINOGEN,URINE NEGATIVE mg/dL (<2.0)
[2019-04-28 07:05] LABS: HEMOGLOBIN 9.5 g/dL (12.0-15.5); MEAN CORPUSCULAR HEMOGLOBIN 24.3 pg (27.0-33.4); MEAN CORPUSCULAR HGB CONC 32.8 g/dL (32.0-36.0); MEAN CORPUSCULAR VOLUME 74 fl (80-97); PLATELET COUNT 257 10^3/uL (150-450); RED BLOOD COUNT 3.92 10^6/uL (3.72-5.28); RED CELL DISTRIBUTION WIDTH 16.6 % (11.5-14.0)
[2019-04-28 07:09] LABS: ALBUMIN 3.7 g/dL (3.5-5.0); ALKALINE PHOSPHATASE 78 U/L (38-126); ANION GAP 12 (5-19); ASPARTATE AMINO TRANSFERASE 20 U/L (14-36); BILIRUBIN,DIRECT 0.3 mg/dL (0.0-0.4); BILIRUBIN,TOTAL 0.6 mg/dL (0.2-1.3); BLOOD UREA NITROGEN 10 mg/dL (7-20); CALCIUM 9.3 mg/dL (8.4-10.2); CARBON DIOXIDE 26 mmol/L (22-30); CHLORIDE 103 mmol/L (98-107); GLUCOSE 110 mg/dL (75-110); POTASSIUM 3.1 mmol/L (3.6-5.0); TOTAL PROTEIN 7.1 g/dL (6.3-8.2)
[2019-04-28 07:29] LABS: ABSOLUTE LYMPHOCYTES# (MANUAL) 2.9 10^3/uL (0.5-4.7); ABSOLUTE MONOCYTES # (MANUAL) 1.4 10^3/uL (0.1-1.4); BASOPHILS % (MANUAL) 0 % (0-2); EOSINOPHILS % (MANUAL) 0 % (0-6); LYMPHOCYTES % (MANUAL) 10 % (13-45); MONOCYTES % (MANUAL) 6 % (3-13); SEGMENTED NEUTROPHILS % (MAN) 82 % (42-78); TOTAL CELLS COUNTED 100
[2019-04-28 07:30] LABS: ANISOCYTOSIS 1+; PLATELET COMMENT ADEQUATE; POLYCHROMASIA SLIGHT; TARGET CELLS SLIGHT; TOXIC VACUOLATION PRESENT
--- NOTE | 2019-04-28 08:25 | ER Document Report ---
ED General - General Chief Complaint: Flank Pain Stated Complaint: ABDOMINAL PAIN Time Seen by Provider: 04/28/19 07:35 TRAVEL OUTSIDE OF THE [place] IN LAST 30 DAYS: No - Related Data Allergies/Adverse Reactions: tramadol [Tramadol] Allergy (Intermediate, Verified 04/26/19 01:43) tramadol HCl [From Ultram] Allergy (Intermediate, Verified 04/26/19 01:43) hurts stomach, nausea, vomiting Penicillins Allergy (Unknown, Verified 04/26/19 01:43) heart speeds up hydrocodone bitartrate [From Vicodin] Allergy (Verified 04/26/19 01:43) heart speeds up, feels faint ketorolac tromethamine [From Toradol] Allergy (Verified 04/26/19 01:43) hydrocodone [Hydrocodone] Adverse Reaction (Intermediate, Verified 04/26/19 01:43) heart speed up, feel faint ibuprofen [From Motrin] Adverse Reaction (Intermediate, Verified 04/26/19 01:43) hurts stomach, nausea, vomiting Home Medications: flagyl. bactrim Past Medical History - Social History Smoking Status: Current Every Day Smoker Family History: Reviewed & Not Pertinent Patient has suicidal ideation: No Patient has homicidal ideation: No Neurological Medical History: Reports: Hx Migraine Renal/ Medical History: Denies: Hx Peritoneal Dialysis Past Surgical History: Reports: Hx Section - Immunizations Immunizations up to date: Yes Hx Diphtheria, Pertussis, Tetanus Vaccination: Yes Hx Pneumococcal Vaccination: 06/01/00 Physical Exam - Vital signs Vitals: Temp Pulse Resp BP Pulse Ox 98.0 F 78 16 123/74 98 04/28/19 04:10 04/28/19 04:10 04/28/19 04:10 04/28/19 04:10 04/28/19 04:10 - Notes Notes: Patient presents emerge department planing of abdominal pain is been going on for 3 to 4 days. Is generalized in nature. Had some nausea with this but no vomiting. Had a fever 2 days ago 100.8. Denies any chest pain or shortness of breath. Diarrhea or dysuria. No vaginal discharge is currently on her menses. Seen here yesterday diagnosed with PID Raul admitted to the hospital. However she signed at that afternoon because she had to go home and take care of her son was given 1 dose of doxycycline and Flagyl in the hospital charge home on the same. She is did not take the Flagyl because it upsets her stomach when she takes it and she has to eat she had 3 doses of doxycycline and stopped taking that because of diarrhea Past medical history is unremarkable. Social history she does not smoke occasional alcohol. She is on menses now Review of systems pertinent positives and negatives in HPI otherwise all the systems were reviewed and acutely negative PHYSICIAN EXAM -vital signs are noted triage note and note from triage reviewed GENERAL: Well-appearing, well-nourished and in __no____ HEAD: Atraumatic, normocephalic. EYES: Pupils equal round and reactive to light, extraocular movements intact, sclera anicteric, conjunctiva are normal. ENT: nares patent, oropharynx clear without exudates. Lightly mucous membranes. NECK: supple without lymphadenopathy LUNGS: Breath sounds clear to auscultation bilaterally and equal. No wheezes ra les or rhonchi. HEART: Regular rate and rhythm without murmurs ABDOMEN: Soft, mild tenderness throughout. Exam is limited as patient will not cooperate. She is no pain with abduction of the hips or percussion of the heels EXTREMITIES: No deformity, no edema. NEUROLOGICAL: No focal neurological deficits. Moves all extremities spontaneously and on command. PSYCH: Normal mood, normal affect. SKIN: Warm, Dry, normal turgor, no rashes or lesions noted. BACK-nontender in the midline Course - Re-evaluation Re-evalutation: 04/28/19 08:25 To review her chart and labs from yesterday. Ultrasound was negative test negative GC was positive wet prep was positive for yeast and bacteria and she had a white count that was 04/28/19 09:52 ED patient is remained stable she was given IV fluids IV antibiotics and p otassium Medical decision making patient with a diagnosis of PID and admitted to the hospital yesterday and left AMA presents presents with persistent pain and increase in white count will need admission I have consulted OB 04/28/19 09:57 04/28/19 10:12 - Vital Signs Vital signs: Temp Pulse Resp BP Pulse Ox 98.0 F 78 16 123/74 98 04/28/19 04:10 04/28/19 04:10 04/28/19 04:10 04/28/19 04:10 04/28/19 04:10 - Laboratory Result Diagrams: 04/28/19 06:40 04/28/19 06:40 Laboratory results interpreted by me: 04/28/19 04/28/19 04/28/19 06:34 06:40 06:40 WBC 24.0 H Hgb 9.5 L Hct 29.0 L MCV 74 L MCH 24.3 L RDW 16.6 H Seg Neuts % (Manual) 82 H Lymphocytes % (Manual) 10 L Abs Neuts (Manual) 19.7 H Potassium 3.1 L Lipase 11.8 L Urine Protein 100 H Urine Ketones TRACE H Urine Blood LARGE H Ur Leukocyte Esterase TRACE H Urine Ascorbic Acid 20 H Discharge - Discharge Clinical Impression: PID (acute pelvic inflammatory disease), Lower abdominal pain Disposition: ADMITTED INPATIENT Unit Admitted: Post
[2019-04-28] MEDS ORDERED: ONDANSETRON HCL INJ/PF 4 MG/2 ML SDV IV ONE (08:55)
[2019-04-28] MEDS ORDERED: MORPHINE SULFATE 10 MG/ML INJ IV PRN (08:55)
[2019-04-28] MEDS ORDERED: CEFOXITIN INJ 2 GM VIAL IV ONE (08:56)
[2019-04-28] MEDS ORDERED: DOXYCYCLINE HYCLATE INJ 100 MG VIAL IV ONE (08:57)
[2019-04-28] MEDS ORDERED: POTASSI CL 20 MEQ/50 ML RIDER 20 MEQ/50 ML RTUPB IV ONE (08:59)
[2019-04-28] MEDS ORDERED: NORMAL SALINE 1000 ML 1,000 ML IV ONE ×2 (09:39→09:40)
[2019-04-28] MEDS ORDERED: FAMOTIDINE 20 MG TABLET PO ONE (10:23)
[2019-04-28] MEDS: ONDANSETRON HCL INJ/PF 4 MG/2 ML SDV IV PRN ×3 (12:40→20:46)
[2019-04-28] MEDS ORDERED: ACETAMINOPHEN 325 MG TABLET PO PRN (14:02)
[2019-04-28] MEDS: RINGERS SOLUTION,LACTATED 1,000 ML IV PRN (14:41)
--- NOTE | 2019-04-28 15:37 | PDOC H&P ---
History of Present Illness Admission Date/PCP: 04/28/19 10:23 History of Present Illness: ALEX FIELD is a 38 year old female presented to [facility] emergency department complaining of worsening abdominal pain and not able to take PO antibiotics given earlier this week for gonorrhea and PID. Denies fever or chills. Nausea/no vomiting. Patient stated that the abdominal pain started 3 to 4 days ago. Patient stated that she thought that she had Gonorrhea secondary to sharing her sex toy to her friend. She was treated in the ED earlier this week with rocephin an doxycline. D/t abd pain and nausea it was recommended at that time she would stay in hospital for IV antibiotics but she left for family reasons. Now she is returning unable to keep down her doxycyclin PO and she did start the second antibiotic given. Past Medical History Neurological Medical History: Reports: Migraine Past Surgical History Past Surgical History: Reports: Section Social History Smoking Status: Current Every Day Smoker Frequency of Alcohol Use: Rare Hx Recreational Drug Use: No Hx Prescription Drug Abuse: No Family History Family History: Reviewed & Not Pertinent Parental Family History Reviewed: Yes Children Family History Reviewed: Yes Sibling(s) Family History Reviewed.: Yes Medication/Allergy Home Medications: No Home Medications 04/28/19 Allergies/Adverse Reactions: tramadol [Tramadol] Allergy (Intermediate, Verified 04/26/19 01:43) tramadol HCl [From Ultram] Allergy (Intermediate, Verified 04/26/19 01:43) hurts stomach, nausea, vomiting Penicillins Allergy (Unknown, Verified 04/26/19 01:43) heart speeds up hydrocodone bitartrate [From Vicodin] Allergy (Verified 04/26/19 01:43) heart speeds up, feels faint ketorolac tromethamine [From Toradol] Allergy (Verified 04/26/19 01:43) hydrocodone [Hydrocodone] Adverse Reaction (Intermediate, Verified 04/26/19 01:43) heart speed up, feel faint ibuprofen [From Motrin] Adverse Reaction (Intermediate, Verified 04/26/19 01:43) hurts stomach, nausea, vomiting Review of Systems Constitutional: ABSENT: chills, fever(s), headache(s), weight gain, weight loss Cardiovascular: ABSENT: chest pain, dyspnea on exertion, edema, orthropnea, palpitations Respiratory: ABSENT: cough, hemoptysis Gastrointestinal: PRESENT: abdominal pain, nausea Genitourinary: ABSENT: dysuria, hematuria Musculoskeletal: ABSENT: joint swelling Integumentary: ABSENT: rash, wounds Psychiatric: ABSENT: anxiety, depression, homidical ideation, suicidal ideation Physical Exam - Physical Exam Vital Signs: Temp Pulse Resp BP Pulse Ox 98.4 F 76 14 149/85 H 100 04/28/19 11:38 04/28/19 11:38 04/28/19 11:38 04/28/19 11:38 04/28/19 11:38 Intake & Output 04/27/19 04/28/19 04/29/19 06:59 06:59 06:59 Intake Total 1050 Balance 1050 Weight 117.9 kg General appearance: PRESENT: no acute distress, cooperative, thin Respiratory exam: PRESENT: clear to auscultation gricelda Cardiovascular exam: PRESENT: RRR, +S1, +S2 GI/Abdominal exam: PRESENT: normal bowel sounds, soft Neurological exam: PRESENT: alert, oriented to time Skin exam: PRESENT: dry, normal color Result Laboratory Results: 04/28/19 06:40 04/28/19 06:40 04/28/19 04/28/19 04/28/19 06:34 06:40 06:40 WBC 24.0 H RBC 3.92 Hgb 9.5 L Hct 29.0 L MCV 74 L MCH 24.3 L MCHC 32.8 RDW 16.6 H Plt Count 257 Seg Neutrophils % Not Reportable Sodium 141.2 Potassium 3.1 L Chloride 103 Carbon Dioxide 26 Anion Gap 12 BUN 10 Creatinine 0.52 Est GFR ( Amer) > 60 Glucose 110 Calcium 9.3 Total Bilirubin 0.6 AST 20 Alkaline Phosphatase 78 Total Protein 7.1 Albumin 3.7 Lipase 11.8 L Serum HCG, Qual Urine Color YELLOW Urine Appearance SLIGHTLY-CLOUDY Urine pH 5.0 Ur Specific [place] 1.023 Urine Protein 100 H Urine Glucose (UA) NEGATIVE Urine Ketones TRACE H Urine Blood LARGE H Urine Nitrite NEGATIVE Ur Leukocyte Esterase TRACE H Urine WBC (Auto) 16 Urine RBC (Auto) >182 04/28/19 06:40 WBC RBC Hgb Hct MCV MCH MCHC RDW Plt Count Seg Neutrophils % Sodium Potassium Chloride Carbon Dioxide Anion Gap BUN Creatinine Est GFR ( Amer) Glucose Calcium Total Bilirubin AST Alkaline Phosphatase Total Protein Albumin Lipase Serum HCG, Qual NEGATIVE Urine Color Urine Appearance Urine pH Ur Specific [place] Urine Protein Urine Glucose (UA) Urine Ketones Urine Blood Urine Nitrite Ur Leukocyte Esterase Urine WBC (Auto) Urine RBC (Auto) Assessment & Plan - Diagnosis (1) Leukocytosis Is this a current diagnosis for this admission?: Yes (2) Lower abdominal pain Is this a current diagnosis for this admission?: Yes (3) PID (acute pelvic inflammatory disease) Is this a current diagnosis for this admission?: Yes Plan: 2o yo with Pelvic/abdominal pain, PID and nausea -admit for IV antibiotics as she is not able to tolerate PO antibiotics outpatient d/t nausea -IVFs -Diet as tolerating: regular -Nausea: zofran 4mg IV Q 4 hrs PRN nausea -Cefoxiten 2 gm Q 12hrs and VIbramycin 100mg IV q 12 hrs -Tylenol 1 gm Q 6 hrs PRN pain or fever. Morphine 2 mg Q 2hrs for break through pain -Activity as tolerated . SCD while in bed -DIscussed plan of care with her and her father. LIkely will need 24-48 hours of therapy (4) Gonorrhea Is this a current diagnosis for this admission?: Yes (5) Nausea Is this a current diagnosis for this admission?: Yes
[2019-04-28] MEDS: FERROUS SULFATE 325 MG TABLET PO SCH (17:45)
[2019-04-28] MEDS ORDERED: DOXYCYCLINE HYCLATE INJ 100 MG VIAL IV SCH (20:00)
[2019-04-28] MEDS: DOXYCYCLINE HYCLATE 100 MG in DEXTROSE 5%-WATER 250 ML IV SCH (20:07)
[2019-04-28] MEDS ORDERED: CEFOXITIN INJ 2 GM VIAL IV SCH (22:00)
[2019-04-28] MEDS ORDERED: CEFOXITIN 1 GM/D5W RTU 1 GM/50 ML RTUPB IV SCH (22:00)
[2019-04-28] MEDS ORDERED: CEFOXITIN SODIUM 2 GM in DEXTROSE 5%-WATER 100 ML IV SCH (22:00)
[2019-04-28] MEDS: MORPHINE SULFATE 10 MG/ML INJ IV PRN (23:47)
[2019-04-28] MEDS ORDERED: CEFOXITIN SODIUM 2 GM in DEXTROSE 5%-WATER 100 ML IV ONE (23:59)
[2019-04-29] MEDS: ONDANSETRON HCL INJ/PF 4 MG/2 ML SDV IV PRN ×5 (00:59→23:26)
[2019-04-29] MEDS: RINGERS SOLUTION,LACTATED 1,000 ML IV PRN ×2 (02:49→13:30)
[2019-04-29] MEDS: DOXYCYCLINE HYCLATE 100 MG in DEXTROSE 5%-WATER 250 ML IV SCH ×2 (06:12→19:02)
[2019-04-29] MEDS: LOPERAMIDE HCL 2 MG CAPSULE PO PRN ×2 (06:12→08:30)
[2019-04-29] MEDS: MORPHINE SULFATE 10 MG/ML INJ IV PRN ×2 (08:22→23:26)
[2019-04-29] MEDS: FERROUS SULFATE 325 MG TABLET PO SCH ×2 (08:22→17:57)
[2019-04-29 08:33] LABS: HEMATOCRIT 29.6 % (36.0-47.0); HEMOGLOBIN 9.8 g/dL (12.0-15.5); MEAN CORPUSCULAR HEMOGLOBIN 24.6 pg (27.0-33.4); MEAN CORPUSCULAR HGB CONC 33.2 g/dL (32.0-36.0); MEAN CORPUSCULAR VOLUME 74 fl (80-97); PLATELET COUNT 280 10^3/uL (150-450); RED CELL DISTRIBUTION WIDTH 16.9 % (11.5-14.0)
--- NOTE | 2019-04-29 08:33 | PDOC PROGRESS REPORT ---
Subjective Progress Note for:: 04/29/19 Subjective:: Patient is afebrile. However, she is not tolerating her antibiotics very well. She is nauseated and is having persistent diarrhea. She denies chest pain, shortness of breath, and fever/chills. She does have some abdominal pain. Reason For Visit: PID Physical Exam - Physical Exam Vital Signs: Temp Pulse Resp BP Pulse Ox 98.6 F 71 18 136/73 H 100 04/29/19 07:59 04/29/19 07:59 04/29/19 07:59 04/29/19 07:59 04/29/19 07:59 Intake & Output 04/28/19 04/29/19 04/30/19 06:59 06:59 06:59 Intake Total 2300 Balance 2300 Weight 117.9 kg General appearance: PRESENT: no acute distress Respiratory exam: PRESENT: clear to auscultation gricelda Cardiovascular exam: PRESENT: RRR GI/Abdominal exam: PRESENT: normal bowel sounds, soft Extremities exam: ABSENT: calf tenderness, clubbing, full ROM, joint swelling, pedal edema, tenderness, +1 edema, +2 edema, other Result Laboratory Results: 04/28/19 06:40 04/28/19 06:40 Assessment & Plan - Diagnosis (1) Diarrhea Is this a current diagnosis for this admission?: Yes (2) Leukocytosis Is this a current diagnosis for this admission?: Yes (3) Lower abdominal pain Is this a current diagnosis for this admission?: Yes (4) PID (acute pelvic inflammatory disease) Is this a current diagnosis for this admission?: Yes (5) Nausea Is this a current diagnosis for this admission?: Yes - Time Time Spent with patient: 15-24 minutes Medications reviewed and adjusted accordingly: Yes Anticipated discharge: Home Within: within 48 hours - Inpatient Certification Based on my medical assessment, after consideration of the patient's comorbidities, presenting symptoms, or acuity I expect that the services needed warrant INPATIENT care.: Yes I certify that my determination is in accordance with my understanding of Medicare's requirements for reasonable and necessary INPATIENT services [42 CFR 412.3e].: Yes Medical Necessity: Need For IV Fluids, Need for IV Antibiotics - Plan Summary Plan Summary: 1. Continue current care 2. Tinea IV fluids secondary to persistent diarrhea
[2019-04-29 08:57] LABS: ABSOLUTE LYMPHOCYTES# (MANUAL) 1.5 10^3/uL (0.5-4.7); ABSOLUTE MONOCYTES # (MANUAL) 0.3 10^3/uL (0.1-1.4); BASOPHILS % (MANUAL) 0 % (0-2); EOSINOPHILS % (MANUAL) 0 % (0-6); LYMPHOCYTES % (MANUAL) 11 % (13-45); MONOCYTES % (MANUAL) 2 % (3-13); SEGMENTED NEUTROPHILS % (MAN) 87 % (42-78); TOTAL CELLS COUNTED 100
[2019-04-29 08:58] LABS: ANISOCYTOSIS 1+; HYPOCHROMASIA 2+; OVALOCYTES 1+; PLATELET COMMENT ADEQUATE; POIKILOCYTOSIS 1+; TARGET CELLS 1+
[2019-04-29] MEDS: CEFOXITIN SODIUM 2 GM in DEXTROSE 5%-WATER 100 ML IV SCH ×2 (09:57→22:43)
[2019-04-29] MEDS: FAMOTIDINE 20 MG TABLET PO SCH ×2 (09:58→17:56)
[2019-04-29] MEDS: DIPHENOXYLATE HCL/ATROP SULF 2.5-0.025 MG TABLET PO PRN ×2 (13:30→19:31)
[2019-04-29] MEDS ORDERED: POTASSIUM CHLORIDE 10 MEQ TABLET.ER PO ONE (23:00)
[2019-04-29] MEDS: POTASSIUM CHLORIDE 20 MEQ/50 ML RTU IV SCH ×2 (23:43→23:44)
[2019-04-30] MEDS ORDERED: HYDRALAZINE HCL INJ/PF 20 MG/1 ML SDV ONE (01:12)
[2019-04-30] MEDS ORDERED: HYDRALAZINE HCL INJ/PF 20 MG/1 ML SDV IV ONE (01:15)
[2019-04-30] MEDS: DIPHENOXYLATE HCL/ATROP SULF 2.5-0.025 MG TABLET PO PRN ×2 (01:40→09:54)
[2019-04-30] MEDS: RINGERS SOLUTION,LACTATED 1,000 ML IV PRN (02:42)
[2019-04-30 06:53] LABS: HEMATOCRIT 28.9 % (36.0-47.0); HEMOGLOBIN 9.8 g/dL (12.0-15.5); MEAN CORPUSCULAR HEMOGLOBIN 24.9 pg (27.0-33.4); MEAN CORPUSCULAR HGB CONC 33.8 g/dL (32.0-36.0); MEAN CORPUSCULAR VOLUME 74 fl (80-97); PLATELET COUNT 301 10^3/uL (150-450); RED BLOOD COUNT 3.93 10^6/uL (3.72-5.28); RED CELL DISTRIBUTION WIDTH 16.9 % (11.5-14.0); WHITE BLOOD COUNT 10.9 10^3/uL (4.0-10.5)
[2019-04-30 07:09] LABS: ALBUMIN 3.2 g/dL (3.5-5.0); ALKALINE PHOSPHATASE 88 U/L (38-126); ANION GAP 9 (5-19); ASPARTATE AMINO TRANSFERASE 17 U/L (14-36); BILIRUBIN,DIRECT 0.3 mg/dL (0.0-0.4); BILIRUBIN,TOTAL 0.5 mg/dL (0.2-1.3); BLOOD UREA NITROGEN 4 mg/dL (7-20); CARBON DIOXIDE 26 mmol/L (22-30); CHLORIDE 105 mmol/L (98-107); GLUCOSE 84 mg/dL (75-110); POTASSIUM 3.4 mmol/L (3.6-5.0); TOTAL PROTEIN 6.5 g/dL (6.3-8.2)
[2019-04-30 07:25] LABS: ABSOLUTE LYMPHOCYTES# (MANUAL) 2.4 10^3/uL (0.5-4.7); ABSOLUTE MONOCYTES # (MANUAL) 1.1 10^3/uL (0.1-1.4); BAND NEUTROPHILS % (MANUAL) 8 % (3-5); BASOPHILS % (MANUAL) 0 % (0-2); EOSINOPHILS % (MANUAL) 1 % (0-6); LYMPHOCYTES % (MANUAL) 22 % (13-45); MONOCYTES % (MANUAL) 10 % (3-13); SEGMENTED NEUTROPHILS % (MAN) 59 % (42-78); TOTAL CELLS COUNTED 100
[2019-04-30 07:26] LABS: ANISOCYTOSIS 1+; PLATELET COMMENT ADEQUATE; POLYCHROMASIA 1+
[2019-04-30] MEDS: FAMOTIDINE 20 MG TABLET PO SCH ×2 (09:54→17:21)
[2019-04-30] MEDS: DOXYCYCLINE HYCLATE 100 MG in DEXTROSE 5%-WATER 250 ML IV SCH (09:54)
--- NOTE | 2019-04-30 11:17 | PDOC PROGRESS REPORT ---
Subjective Progress Note for:: 04/30/19 Subjective:: Feeling somewhat better. Less abdominal pain. Still not eating well. She ate only a few potatoes for breakfast. She says she is still feeling nauseated. Some diarrhea also which she thinks is related to the doxycycline No bladder complaints, fever, chills Reason For Visit: PID Physical Exam - Physical Exam Vital Signs: Temp Pulse Resp BP Pulse Ox 98.2 F 66 18 142/78 H 100 04/30/19 07:05 04/30/19 07:05 04/30/19 07:05 04/30/19 07:05 04/30/19 07:05 Intake & Output 04/29/19 04/30/19 05/01/19 06:59 06:59 06:59 Intake Total 2300 3811 Balance 2300 3811 General appearance: PRESENT: no acute distress, cooperative Respiratory exam: PRESENT: clear to auscultation gricelda Cardiovascular exam: PRESENT: RRR, +S1, +S2 GI/Abdominal exam: PRESENT: normal bowel sounds, soft Musculoskeletal exam: PRESENT: ambulatory, full ROM Psychiatric exam: PRESENT: appropriate affect, normal mood Skin exam: PRESENT: dry, normal color, warm Result Laboratory Results: 04/30/19 06:37 04/30/19 06:37 04/30/19 04/30/19 06:37 06:37 WBC 10.9 H RBC 3.93 Hgb 9.8 L Hct 28.9 L MCV 74 L MCH 24.9 L MCHC 33.8 RDW 16.9 H Plt Count 301 Seg Neutrophils % Not Reportable Sodium 140.3 Potassium 3.4 L Chloride 105 Carbon Dioxide 26 Anion Gap 9 BUN 4 L Creatinine 0.53 Est GFR ( Amer) > 60 Glucose 84 Calcium 9.0 Total Bilirubin 0.5 AST 17 Alkaline Phosphatase 88 Total Protein 6.5 Albumin 3.2 L 04/28/19 06:34 Clean Catch Midstream Urine Culture - Final NO GROWTH 2 DAYS Assessment & Plan - Diagnosis (1) Lower abdominal pain Is this a current diagnosis for this admission?: Yes (2) PID (acute pelvic inflammatory disease) Is this a current diagnosis for this admission?: Yes (3) Gonorrhea Is this a current diagnosis for this admission?: Yes (4) Nausea Is this a current diagnosis for this admission?: Yes (5) Leukocytosis Is this a current diagnosis for this admission?: Yes Plan: WBC down from 24 K to 11K Continue antibiotics today but will begin switching to PO antibiotics rather than PO to see if she tolerates Antiemetics PRN for nausea Cultures no growth Discussed d/c and will need to be able to tolerate PO antibiotics prior to d/c - Time Time Spent with patient: Less than 15 minutes Anticipated discharge: Home Within: within 24 hours Disposition: Improving. If tolerating PO later today she may be able to go home in next 24 hrs
[2019-04-30] MEDS ORDERED: AZITHROMYCIN 250 MG TABLET PO ONE ×2 (11:30→17:30)
[2019-04-30] MEDS ORDERED: ONDANSETRON 4 MG TAB.RAPDIS ONE (11:48)
[2019-04-30] MEDS: ONDANSETRON 4 MG TAB.RAPDIS PO PRN ×2 (11:51→23:01)
[2019-04-30] MEDS: FERROUS SULFATE 325 MG TABLET PO SCH ×2 (12:52→18:49)
[2019-04-30] MEDS: CEFOXITIN SODIUM 2 GM in DEXTROSE 5%-WATER 100 ML IV SCH ×2 (13:45→22:09)
[2019-04-30] MEDS ORDERED: AZITHROMYCIN 250 MG TABLET ONE ×2 (17:18→22:44)
[2019-04-30] MEDS ORDERED: 1/2 NORMAL SALINE 1,000 ML with POTASSIUM CHLORIDE 40 MEQ IV ONE ×2 (18:30)
[2019-04-30] MEDS: MAG HYDROX/AL HYDROX/SIMETH SUSP 30 ML UDCUP PO PRN (22:35)
[2019-05-01] MEDS: MAG HYDROX/AL HYDROX/SIMETH SUSP 30 ML UDCUP PO PRN ×2 (04:20→06:20)
[2019-05-01 07:40] LABS: ABSOLUTE EOSINOPHILS # (AUTO) 0.1 10^3/uL (0.0-0.6); ABSOLUTE LYMPHOCYTES (AUTO) 2.2 10^3/uL (0.5-4.7); ABSOLUTE MONOCYTES (AUTO) 1.2 10^3/uL (0.1-1.4); ABSOLUTE NEUT (AUTO) 6.7 10^3/uL (1.7-8.2); BASOPHILS % (AUTO) 0.4 % (0-2); EOSINOPHILS % (AUTO) 0.9 % (0-6); HEMOGLOBIN 9.7 g/dL (12.0-15.5); LYMPHOCYTES % (AUTO) 21.4 % (13-45); MEAN CORPUSCULAR HEMOGLOBIN 24.8 pg (27.0-33.4); MEAN CORPUSCULAR HGB CONC 33.6 g/dL (32.0-36.0); MEAN CORPUSCULAR VOLUME 74 fl (80-97); MONOCYTES % (AUTO) 11.8 % (3-13); PLATELET COUNT 286 10^3/uL (150-450); RED BLOOD COUNT 3.94 10^6/uL (3.72-5.28); RED CELL DISTRIBUTION WIDTH 16.8 % (11.5-14.0); SEGMENTED NEUTROPHILS % (AUTO) 65.5 % (42-78); TOTAL CELLS COUNTED % (AUTO) 100 %; WHITE BLOOD COUNT 10.2 10^3/uL (4.0-10.5)
[2019-05-01 08:59] VITALS: BP 134/68
[2019-05-01] MEDS: FAMOTIDINE 20 MG TABLET PO SCH (09:37)
[2019-05-01] MEDS: DIPHENOXYLATE HCL/ATROP SULF 2.5-0.025 MG TABLET PO PRN (09:37)
[2019-05-01] MEDS: ONDANSETRON 4 MG TAB.RAPDIS PO PRN (09:39)
[2019-05-01] MEDS: FERROUS SULFATE 325 MG TABLET PO SCH (09:40)
[2019-05-01] MEDS: CEFOXITIN SODIUM 2 GM in DEXTROSE 5%-WATER 100 ML IV SCH (09:40)
--- NOTE | 2019-05-04 09:47 | PDOC DISCHARGE SUMMARY ---
Impression - Admit/DC Date/PCP Admission Date/Primary Care Provider: 04/26/19 10:40 Discharge Date: 05/01/19 - Discharge Diagnosis (1) Lower abdominal pain Is this a current diagnosis for this admission?: Yes (2) Leukocytosis Is this a current diagnosis for this admission?: Yes (3) Diarrhea Is this a current diagnosis for this admission?: Yes (4) Nausea Is this a current diagnosis for this admission?: Yes (5) Bandemia Is this a current diagnosis for this admission?: Yes (6) PID (acute pelvic inflammatory disease) Is this a current diagnosis for this admission?: Yes (7) Gonorrhea Is this a current diagnosis for this admission?: Yes - Additional Information Resuscitation Status: Full Code Discharge Diet: As Tolerated Discharge Activity: Activity As Tolerated, Pelvic Rest Referrals: MATTHEW FITCH DO [ACTIVE STAFF] - (Follow up in 2 weeks at [facility]) Home Medications: Famotidine [Pepcid 20 mg Tablet] 20 mg PO BID 04/28/19 History of Present Illiness History of Present Illness: ALEX FIELD is a 38 year old presented to [facility] emergency department complaining of worsening abdominal pain. Patient stated that the abdominal pain started 2 to 3 days ago. She does have some nausea but no vomiting. Patient stated that she thought that she had Gonorrhea secondary to landing her sex toy to her friend. When the EMS arrived, her temperature was 100.8. She was indeed positive for Gonorrhea. She then left AMA and returned a few days later stating that she could not tolerate the antibiotics. She was experiencing persistent diarrhea from the Doxycycline Physical Exam - Physical Exam Vital Signs: Temp Pulse Resp BP Pulse Ox 97.3 F 91 18 114/63 99 04/26/19 12:06 04/26/19 12:06 04/26/19 12:06 04/26/19 12:06 04/26/19 12:06 General appearance: PRESENT: no acute distress Respiratory exam: PRESENT: clear to auscultation gricelda Cardiovascular exam: PRESENT: RRR GI/Abdominal exam: PRESENT: normal bowel sounds, soft Extremities exam: ABSENT: calf tenderness, clubbing, full ROM, joint swelling, pedal edema, tenderness, +1 edema, +2 edema, other Results Laboratory Results: WBC 18.7 10^3/uL (4.0-10.5) H 04/26/19 02:00 RBC 4.57 10^6/uL (3.72-5.28) 04/26/19 02:00 Hgb 11.3 g/dL (12.0-15.5) L 04/26/19 02:00 Hct 34.1 % (36.0-47.0) L 04/26/19 02:00 MCV 75 fl (80-97) L 04/26/19 02:00 MCH 24.6 pg (27.0-33.4) L 04/26/19 02:00 MCHC 33.0 g/dL (32.0-36.0) 04/26/19 02:00 RDW 16.5 % (11.5-14.0) H 04/26/19 02:00 Plt Count 268 10^3/uL (150-450) 04/26/19 02:00 Lymph % (Auto) Not Reportable 04/26/19 02:00 [place] % (Auto) Not Reportable 04/26/19 02:00 Eos % (Auto) Not Reportable 04/26/19 02:00 Baso % (Auto) Not Reportable 04/26/19 02:00 Absolute Neuts (auto) Not Reportable 04/26/19 02:00 Absolute Lymphs (auto) Not Reportable 04/26/19 02:00 Absolute Monos (auto) Not Reportable 04/26/19 02:00 Absolute Eos (auto) Not Reportable 04/26/19 02:00 Absolute Basos (auto) Not Reportable 04/26/19 02:00 Total Counted 100 04/26/19 02:00 Seg Neutrophils % Not Reportable 04/26/19 02:00 Seg Neuts % (Manual) 83 % (42-78) H 04/26/19 02:00 Band Neutrophils % 8 % (3-5) H 04/26/19 02:00 Lymphocytes % (Manual) 3 % (13-45) L 04/26/19 02:00 Atypical Lymphs % 1 % (0) 04/26/19 02:00 Monocytes % (Manual) 5 % (3-13) 04/26/19 02:00 Eosinophils % (Manual) 0 % (0-6) 04/26/19 02:00 Basophils % (Manual) 0 % (0-2) 04/26/19 02:00 Abs Neuts (Manual) 17.0 10^3/uL (1.7-8.2) H 04/26/19 02:00 Abs Lymphs (Manual) 0.7 10^3/uL (0.5-4.7) 04/26/19 02:00 Abs Monocytes (Manual) 0.9 10^3/uL (0.1-1.4) 04/26/19 02:00 Absolute Eos (Manual) 0.0 10^3/uL (0.0-0.6) 04/26/19 02:00 Abs Basophils (Manual) 0.0 10^3/uL (0.0-0.2) 04/26/19 02:00 Platelet Comment ADEQUATE 04/26/19 02:00 Anisocytosis 1+ 04/26/19 02:00 Microcytosis 1+ 04/26/19 02:00 Target Cells SLIGHT 04/26/19 02:00 Sodium 142.3 mmol/L (137-145) 04/26/19 02:00 Potassium 3.4 mmol/L (3.6-5.0) L 04/26/19 02:00 Chloride 101 mmol/L (98-107) 04/26/19 02:00 Carbon Dioxide 28 mmol/L (22-30) 04/26/19 02:00 Anion Gap 13 (5-19) 04/26/19 02:00 BUN 10 mg/dL (7-20) 04/26/19 02:00 Creatinine 0.69 mg/dL (0.52-1.25) 04/26/19 02:00 Est GFR ( Amer) > 60 (>60) 04/26/19 02:00 Est GFR (MDRD) Non-Af > 60 (>60) 04/26/19 02:00 Glucose 126 mg/dL (75-110) H 04/26/19 02:00 Lactic Acid (Sepsis) 1.6 mmol/L (0.7-2.1) 04/26/19 04:05 Calcium 10.2 mg/dL (8.4-10.2) 04/26/19 02:00 Total Bilirubin 1.0 mg/dL (0.2-1.3) 04/26/19 02:00 Direct Bilirubin 0.1 mg/dL (0.0-0.4) 04/26/19 02:00 Neonat Total Bilirubin Not Reportable 04/26/19 02:00 Neonat Direct Bilirubin Not Reportable 04/26/19 02:00 Neonat Indirect Bili Not Reportable 04/26/19 02:00 AST 25 U/L (14-36) 04/26/19 02:00 ALT 14 U/L (<35) 04/26/19 02:00 Alkaline Phosphatase 65 U/L (38-126) 04/26/19 02:00 Total Protein 8.3 g/dL (6.3-8.2) H 04/26/19 02:00 Albumin 4.8 g/dL (3.5-5.0) 04/26/19 02:00 Lipase 19.5 U/L (23-300) L 04/26/19 02:00 Serum HCG, Qual NEGATIVE (NEGATIVE) 04/26/19 02:00 Urine Color YELLOW 04/26/19 04:58 Urine Appearance SLIGHTLY-CLOUDY 04/26/19 04:58 Urine pH 6.0 (5.0-9.0) 04/26/19 04:58 Ur Specific Barton 1.014 04/26/19 04:58 Urine Protein 30 mg/dL (NEGATIVE) H 04/26/19 04:58 Urine Glucose (UA) NEGATIVE mg/dL (NEGATIVE) 04/26/19 04:58 Urine Ketones TRACE mg/dL (NEGATIVE) H 04/26/19 04:58 Urine Blood LARGE (NEGATIVE) H 04/26/19 04:58 Urine Nitrite NEGATIVE (NEGATIVE) 04/26/19 04:58 Urine Bilirubin NEGATIVE (NEGATIVE) 04/26/19 04:58 Urine Urobilinogen 4.0 mg/dL (<2.0) H 04/26/19 04:58 Ur Leukocyte Esterase MODERATE (NEGATIVE) H 04/26/19 04:58 Urine WBC (Auto) 130 /HPF 04/26/19 04:58 Urine RBC (Auto) >182 /HPF 04/26/19 04:58 Squamous Epi Cells Auto 1 /HPF 04/26/19 04:58 Urine Mucus (Auto) OCC /LPF 04/26/19 04:58 Urine Ascorbic Acid NEGATIVE (NEGATIVE) 04/26/19 04:58 Bacteria (Wet Prep) 4+ BACTERIA SEEN 04/26/19 04:45 Trichomonas (Wet Prep) NO TRICHOMONAS SEEN 04/26/19 04:45 Vaginal WBC FEW WBCS SEEN 04/26/19 04:45 Vaginal RBC 1+ RBCS SEEN 04/26/19 04:45 Vaginal Yeast YEAST SEEN 04/26/19 04:45 Chlamydia DNA (PCR) NOT DETECTED (NOT DETECT) 04/26/19 04:45 N.gonorrhoeae DNA (PCR) DETECTED (NOT DETECT) H 04/26/19 04:45 Impressions: Abdomen/Pelvis CT 04/26/19 05:43 IMPRESSION: 1. No evidence of acute intra-abdominal or intrapelvic pathology. 2. The gallbladder is moderately distended and there is dilatation of the common bile duct which measures approximately 8 to 9 mm in diameter with tapering of the distal common duct. 3. Mild hepatomegaly. 4. Approximately 2.7 x 2.1 x 2.2 cm focal area of decreased attenuation in the right hepatic lobe which mildly enhances on the portal phase images possibly representing a cavernous hemangioma. Plan Time Spent: Less than 30 Minutes Stroke Is this a Stroke Patient?: No Acute Heart Failure - Is this a Heart Failure Patient?: No
== END 2019-05-01 12:08 | disposition home or self-care (01) ==
LOC: ER 04:03 → INTOOBSV 10:23 → EH 10:23 → 2S 11:41
PROVIDERS: ADMIT Obstetrics & Gynecology; ATTEND Obstetrics & Gynecology
DX: R10.30 Lower abdominal pain, unspecified (principal); D72.829 Elevated white blood cell count, unspecified; R11.0 Nausea; D72.825 Bandemia; N73.9 Female pelvic inflammatory disease, unspecified; A54.9 Gonococcal infection, unspecified; K52.1 Toxic gastroenteritis and colitis; T36.4X5A Adverse effect of tetracyclines, initial encounter; F17.200 Nicotine dependence, unspecified, uncomplicated; Z32.02 Encounter for pregnancy test, result negative
CPT/HCPCS: 99285; 96375; 96365; 36415 ×4; 87040; 87086; 83690; 84703; 85025 ×4; 80053 ×2; 81001; G0378 ×4; J3490 ×6; S0119 ×2; J2270 ×2; J2405 ×2; J3480; J7060 ×5; J7030; J7120 ×3; J0694 ×3

== ENCOUNTER 2019-08-11 17:49 | Emergency (ER) | payer OTHER ==
[2019-08-11] MEDS ORDERED: CEFTRIAXONE INJ 1000 MG VIAL IM ONE (19:27)
[2019-08-11] MEDS ORDERED: AZITHROMYCIN 1 GM SUSP PACKET PO ONE (19:27)
--- NOTE | 2019-08-11 19:33 | ER Document Report ---
HPI - HPI Time Seen by Provider: 08/11/19 19:10 Pain Level: 0 Associated Symptoms: None Exacerbated by: Denies Relieved by: Denies Similar symptoms previously: Yes Recently seen / treated by doctor: No - CONSTITUTIONAL Constitutional: DENIES: Fever, Chills - REPRODUCTIVE Reproductive: DENIES: : Past Medical History - General Information source: Patient - Social History Smoking Status: Current Every Day Smoker Frequency of alcohol use: None Drug Abuse: None Family History: Reviewed & Not Pertinent Patient has suicidal ideation: No Patient has homicidal ideation: No - Past Medical History Cardiac Medical History: Denies: Hx Congestive Heart Failure, Hx Heart Attack, Hx Hypertension Pulmonary Medical History: Denies: Hx Asthma, Hx Bronchitis, Hx COPD, Hx Pneumonia, Hx Tuberculosis Neurological Medical History: Reports: Hx Migraine. Denies: Hx Seizures, Hx Parkinson's Disease Renal/ Medical History: Denies: Hx End Stage Renal Disease, Hx Kidney Stones, Hx Peritoneal Dialysis GI Medical History: Reports: Hx Gastroesophageal Reflux Disease - Started 2 months ago. Denies: Hx Cirrhosis, Hx Ulcer Musculoskeletal Medical History: Denies Hx Arthritis, Denies Hx Multiple Sclerosis Psychiatric Medical History: Denies: Hx Bipolar Disorder, Hx Depression, Hx Schizophrenia Past Surgical History: Reports: Hx Section - Immunizations Immunizations up to date: Yes Hx Diphtheria, Pertussis, Tetanus Vaccination: Yes Hx Pneumococcal Vaccination: 06/01/00 Vertical Provider Document - CONSTITUTIONAL Agree With Documented VS: Yes - INFECTION CONTROL TRAVEL OUTSIDE OF THE [place] IN LAST 30 DAYS: No - HEENT HEENT: Atraumatic, Normocephalic, PERRLA - NECK Neck: Normal Inspection - RESPIRATORY Respiratory: Breath Sounds Normal - CARDIOVASCULAR Cardiovascular: Regular Rate, Regular Rhythm Pulses: Normal: Brachial, Radial, Carotid - GI/ABDOMEN Gastrointestinal: Abdomen Soft, Abdomen Non-Tender - REPRODUCTIVE Notes: Patient states she had discharge camacho and dark. She is self swabbing and will follow up with orthopedist will call her for further results. - BACK Back: Normal Inspection - NEURO Level of Consciousness: Awake - DERM Integumentary: Warm, Dry Course - Vital Signs Vital signs: Temp Pulse Resp BP Pulse Ox 98.7 F 86 16 142/77 H 100 08/11/19 18:11 08/11/19 18:11 08/11/19 18:11 08/11/19 18:11 08/11/19 18:11 Discharge - Discharge Clinical Impression: Bacterial vaginosis Condition: Good Disposition: HOME, SELF-CARE Instructions: Vaginosis, Bacterial ([facility]) Additional Instructions: Bacterial vaginosis is suspected we will call you with the results of the cultures when they come back follow-up with [facility] in 3 to 4 days. Return to the ER for any change worsening condition. Prescriptions: Doxycycline Hyclate [Vibramycin 100 mg Tablet] 100 mg PO BID #20 tablet
[2019-08-11] MEDS ORDERED: CEFTRIAXONE INJ 250 MG VIAL IM ONE (19:49)
[2019-08-11] MEDS ORDERED: LIDOCAINE 1% INJ-PF (10 MG/ML) 30 ML SDV IM ONE (19:49)
[2019-08-11 19:56] VITALS: BP 126/61
[2019-08-11 20:01] LABS: BACTERIA (WET MOUNT) 4+ BACTERIA SEEN; RBCS (WET MOUNT) 2+ RBCS SEEN; T.VAGINALIS (WET MOUNT) TRICHOMONAS SEEN; WBCS (WET MOUNT) 4+ WBCS SEEN; YEAST (WET MOUNT) NO YEAST SEEN
[2019-08-11] MEDS ORDERED: AZITHROMYCIN 250 MG TABLET PO ONE (20:14)
[2019-08-11 21:25] LABS: CHLAM PCR NOT DETECTED (NOT DETECT)
== END 2019-08-11 20:22 | disposition home or self-care (01) ==
LOC: ER 17:49
DX: N76.0 Acute vaginitis (principal); B96.89 Other specified bacterial agents as the cause of diseases classified elsewhere; F17.200 Nicotine dependence, unspecified, uncomplicated
CPT/HCPCS: 99283; 96372; 87210; 87491; 87591; J3490; J0696

== ENCOUNTER 2019-09-20 01:27 | Emergency (ER) | payer OTHER ==
--- NOTE | 2019-09-20 03:12 | ER Document Report ---
ED GI/ - General Chief Complaint: Vaginal Pain Stated Complaint: VAGINAL ISSUE Time Seen by Provider: 09/20/19 03:02 Notes: Patient is a 38-year-old female that comes emergency department for chief complaint of vaginal discharge, vaginal irritation and discomfort. This is been progressing for the past 3 days. Patient states that she was exposed to an STD with a partner, she was informed the partner had been treated but they were not, she was intimate with them again and she believes she was exposed again. She denies abdominal pain, fever, vomiting, flank pain, or any current symptoms. She denies a rash. She denies . Past medical history of and hospital admission for PID once before. TRAVEL OUTSIDE OF THE [place] IN LAST 30 DAYS: No - Related Data Allergies/Adverse Reactions: tramadol [Tramadol] Allergy (Intermediate, Verified 04/26/19 01:43) tramadol HCl [From Ultram] Allergy (Intermediate, Verified 04/26/19 01:43) hurts stomach, nausea, vomiting Penicillins Allergy (Unknown, Verified 04/26/19 01:43) heart speeds up hydrocodone bitartrate [From Vicodin] Allergy (Verified 04/26/19 01:43) heart speeds up, feels faint ketorolac tromethamine [From Toradol] Allergy (Verified 04/26/19 01:43) hydrocodone [Hydrocodone] Adverse Reaction (Intermediate, Verified 04/26/19 01:43) heart speed up, feel faint ibuprofen [From Motrin] Adverse Reaction (Intermediate, Verified 04/26/19 01:43) hurts stomach, nausea, vomiting Past Medical History - General Information source: Patient - Social History Smoking Status: Current Every Day Smoker Frequency of alcohol use: None Drug Abuse: None Lives with: Family Family History: Reviewed & Not Pertinent Patient has suicidal ideation: No Patient has homicidal ideation: No - Past Medical History Cardiac Medical History: Denies: Hx Congestive Heart Failure, Hx Heart Attack, Hx Hypertension Pulmonary Medical History: Denies: Hx Asthma, Hx Bronchitis, Hx COPD, Hx Pneumonia, Hx Tuberculosis Neurological Medical History: Reports: Hx Migraine. Denies: Hx Seizures, Hx Parkinson's Disease Renal/ Medical History: Denies: Hx End Stage Renal Disease, Hx Kidney Stones, Hx Peritoneal Dialysis GI Medical History: Reports: Hx Gastroesophageal Reflux Disease - Started 2 months ago. Denies: Hx Cirrhosis, Hx Ulcer Musculoskeletal Medical History: Denies Hx Arthritis, Denies Hx Multiple Sclerosis Psychiatric Medical History: Denies: Hx Bipolar Disorder, Hx Depression, Hx Schizophrenia Past Surgical History: Reports: Hx Section - Immunizations Immunizations up to date: Yes Hx Diphtheria, Pertussis, Tetanus Vaccination: Yes Hx Pneumococcal Vaccination: 06/01/00 Review of Systems - Review of Systems Constitutional: No symptoms reported EENT: No symptoms reported Cardiovascular: No symptoms reported Respiratory: No symptoms reported Gastrointestinal: No symptoms reported Genitourinary: See HPI Female Genitourinary: See HPI Musculoskeletal: No symptoms reported Skin: No symptoms reported Hematologic/Lymphatic: No symptoms reported Neurological/Psychological: No symptoms reported Physical Exam - Vital signs Vitals: Temp Pulse Resp BP Pulse Ox 98.5 F 86 15 150/74 H 100 09/20/19 01:31 09/20/19 01:31 09/20/19 01:31 09/20/19 01:09/20/19 01:31 - Notes Notes: GENERAL: Alert, interacts well. No acute distress. HEAD: Normocephalic, atraumatic. EYES: Pupils equal, round, and reactive to light. Extraocular movements intact. ENT: Oral mucosa moist, tongue midline. Oropharynx unremarkable. Airway patent. NECK: Full range of motion. Supple. Trachea midline. No lymphadenopathy. LUNGS: Clear to auscultation bilaterally, no wheezes, rales, or rhonchi. No respiratory distress. Non-tender chest wall. HEART: Regular rate and rhythm. No murmur ABDOMEN: Soft, non-tender. Non-distended. Bowel sounds present in all 4 quadrants. GENITOURINARY: Patient declined EXTREMITIES: Moves all 4 extremities spontaneously. No edema, normal radial and dorsalis pedis pulses bilaterally. No cyanosis. BACK: no cervical, thoracic, lumbar midline tenderness. No saddle anesthesia, normal distal neurovascular exam. Moves all extremities in full range of motion. NEUROLOGICAL: Alert and oriented x3. Normal speech. Cranial nerves II through XII grossly intact. Strength 5/5 in all extremities. PSYCH: Normal affect, normal mood. SKIN: Warm, dry, normal turgor. No rashes or lesions noted. Course - Re-evaluation Re-evalutation: Patient has a soft benign abdomen, no vomiting, no fever, no flank pain. She reports vaginal discharge and vaginal irritation. She reports re-exposure to potential STD. 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 test was negative. Remaining evaluation is pending. Discussed treatment, provided with Diflucan for after the antibiotics on request, discussed follow-up and return precaution. Discussed treatment of partner. Patient states understanding and agreement with plan. Stable and well-appearing at time of discharge. - Vital Signs Vital signs: Temp Pulse Resp BP Pulse Ox 98.5 F 70 18 148/82 H 100 09/20/19 01:31 09/20/19 04:11 09/20/19 04:11 09/20/19 04:11 09/20/19 04:11 Discharge - Discharge Clinical Impression: Vaginal discharge Condition: Stable Disposition: HOME, SELF-CARE Additional Instructions: You have been covered for a potential pelvic infection causing your symptoms. Your lab tests are pending. Your recommendation is to avoid sexual intercourse for 1 week, your partner also needs to be treated or this can continue. Return if you worsen including evolving abdominal pain, vomiting, fever, or any other concerning or worsening symptoms. Prescriptions: Fluconazole [Diflucan] 150 mg PO ONCE PRN #3 tablet PRN Reason: Metronidazole [Flagyl 500 mg Tablet] 500 mg PO BID 7 Days #14 tablet Forms: Return to Work, Elevated Blood Pressure
[2019-09-20] MEDS ORDERED: CEFTRIAXONE INJ 250 MG VIAL IM ONE (03:24)
[2019-09-20] MEDS ORDERED: METRONIDAZOLE 500 MG TABLET PO ONE (03:24)
[2019-09-20] MEDS ORDERED: LIDOCAINE 1% INJ-PF (10 MG/ML) 30 ML SDV INJ ONE (03:24)
[2019-09-20] MEDS ORDERED: ONDANSETRON 4 MG TAB.RAPDIS PO ONE (03:24)
[2019-09-20] MEDS ORDERED: AZITHROMYCIN 250 MG TABLET PO ONE (03:24)
[2019-09-20 04:13] VITALS: BP 148/82
[2019-09-20 04:13] LABS: BACTERIA (WET MOUNT) 3+ BACTERIA SEEN; EPITHELIALS (WET MOUNT) 3+ EPITHELIALS SEEN; RBCS (WET MOUNT) NO RBCS SEEN; T.VAGINALIS (WET MOUNT) NO TRICHOMONAS SEEN; WBCS (WET MOUNT) 1+ WBCS SEEN; YEAST (WET MOUNT) NO YEAST SEEN
[2019-09-20 04:40] LABS: CHLAM PCR NOT DETECTED (NOT DETECT)
== END 2019-09-20 04:11 | disposition home or self-care (01) ==
LOC: ER 01:27
DX: N89.8 Other specified noninflammatory disorders of vagina (principal); R10.2 Pelvic and perineal pain; F17.200 Nicotine dependence, unspecified, uncomplicated; Z20.828 Contact with and (suspected) exposure to other viral communicable diseases; Z88.6 Allergy status to analgesic agent; Z88.5 Allergy status to narcotic agent; Z88.8 Allergy status to other drugs, medicaments and biological substances
CPT/HCPCS: 99283; 96372; 87210; 81025; 87491; 87591; S0119; J3490; J0696

== ENCOUNTER → 2020-04-03 | Outpatient (CLI) | payer OTHER ==
--- NOTE | 2020-04-03 16:00 | RADIOLOGY REPORT (SQ) ---
EXAM DESCRIPTION: CT ABD/PELVIS COMBO IMAGES COMPLETED DATE/TIME: 04/03/2020 3:07 pm REASON FOR STUDY: FREQUENT UTI N39.0 URINARY TRACT INFECTION, SITE NOT SPECIFIED COMPARISON: 04/26/2019 and 09/27/2014. TECHNIQUE: CT scan of the abdomen and pelvis performed with and without intravenous contrast, and wi thout oral contrast. Contrasted imaging performed helical scanning technique and dynamic intravenous contrast injection. Images reviewed with lung, soft tissue, and bone windows. Reconstructed coronal a nd sagittal MPR images reviewed. Delayed images for evaluation of the urinary system also acquired. A ll images stored on PACS. All CT scanners at this facility use dose modulation, iterative reconstruction, and/or weight based d osing when appropriate to reduce radiation dose to as low as reasonably achievable (ALARA). [facility]: Dose Right [facility]: CareDose [facility]: Dose Right [facility]: Teradose 4D [facility]: [employer] Software CONTRAST TYPE AND DOSE: contrast/concentration: Isovue 350.00 mmol/ml; Total Contrast Delivered: -1. 6 ml; Total Saline Delivered: 15.0 ml RENAL FUNCTION: Creatinine 0.6. RADIATION DOSE: CT Rad equipment meets quality standard of care and radiation dose reduction techniq ues were employed. CTDIvol: 8.9 - 9.0 mGy. DLP: 1274 mGy-cm. . LIMITATIONS: None. FINDINGS: NON-CONTRASTED IMAGING: No significant renal or bladder calcifications. No other significa nt organ calcifications. POST-CONTRASTED IMAGING: LOWER CHEST: No significant findings. No nodules or infiltrates. LIVER: Normal size. Again seen is a hemangioma in the right lobe of the liver. No dilated ducts. SPLEEN: Normal size. No focal lesions. PANCREAS: No masses. No significant calcifications. No adjacent inflammation or peripancreatic fluid collections. Pancreatic duct not dilated. GALLBLADDER: No identified stones by CT criteria. No inflammatory changes to suggest cholecystitis. ADRENAL GLANDS: No significant masses or asymmetry. RIGHT KIDNEY AND URETER: No solid masses. No significant calcifications. No hydronephrosis or hyd roureter. LEFT KIDNEY AND URETER: No solid masses. No significant calcifications. No hydronephrosis or hydr oureter. AORTA AND VESSELS: No aneurysm. No dissection. Renal arteries, SMA, celiac without stenosis. RETROPERITONEUM: No retroperitoneal adenopathy, hemorrhage or masses. BOWEL AND PERITONEAL CAVITY: No masses or inflammatory changes. No free fluid or peritoneal masses. APPENDIX: Not visualized. PELVIS: No mass. No free fluid. Normal bladder. ABDOMINAL WALL: No masses. No hernias. BONES: No significant or acute findings. OTHER: No other significant finding. IMPRESSION: HEMANGIOMA IN THE RIGHT LOBE OF THE LIVER, UNCHANGED. OTHERWISE NO SIGNIFICANT OR ACUTE ABNORMALITY IN THE ABDOMEN OR PELVIS. NO ABNORMAL FINDINGS IN THE GENITOURINARY SYSTEM. TECHNICAL DOCUMENTATION: JOB ID: [id number] Quality ID # [id number]: Final reports with documentation of one or more dose reduction techniques (e.g., Au tomated exposure control, adjustment of the mA and/or kV according to patient size, use of iterative reconstruction technique) 2010 [employer]- All Rights Reserved Reading location - IP/workstation name: [email or web address]
== END ==
LOC: RAD 14:08
PROVIDERS: ATTEND Nurse Practitioner
DX: N39.0 Urinary tract infection, site not specified (principal); D18.03 Hemangioma of intra-abdominal structures
CPT/HCPCS: 74178; 81025; 82565